=== PATIENT | female | born 1945 | race Caucasian/White ===

== ENCOUNTER 2016-12-31 18:26 | Emergency (ER) | payer OTHER, MEDICARE ==
[~2016-12-31] VITALS: Ht 149.9 cm; Wt 37.6 kg
[~2016-12-31 18:26] MED LIST: BISACODYL5 MG PO; CALCIUM 600 +1 EAC3; CYMBALTA60 MG PO; Caltrate 600/400 PO; Cipro PO; FLEXERIL10 MG PO; HYDROCODON-ACE1 EAC7 PO; IRON325 MG PO; KADIAN30 MG PO; LEVAQUIN500 MG PO; METAMUCIL PACKE1 PKT PO; MS Contin,Oramorph S PO; PERCOCET 5/31 TABLET PO; PROAIR HFA8.5 GM IH; QUETIAPINE FUM100 MG PO; SEROQUEL100 MG PO; SEROQUEL12.5 MG PO; SEROQUEL400 MG PO; SEROquel PO; VICODIN,LORT1 TABLET PO; Vicodin,Norco 5/325 PO; ZOFRAN ODT4 MG PO
[2016-12-31] MEDS ORDERED: KADIAN30 MG PO (19:31)
[2016-12-31 19:32] LABS: HEMATOCRIT 39.2 % (36.0-46.0); MCH 31.3 PG (29.0-34.0); MCHC 34.4 G/DL (30.0-36.0); PLATELET COUNT 528 K/uL (156-360); RBC DIS.WIDTH-SD 46.8 % (39-53); RED BLOOD COUNT 4.32 M/uL (3.80-5.20); WHITE BLOOD COUNT 11.5 K/uL (4.1-10.2)
[2016-12-31 19:33] LABS: MCV 90.7 FL (83-99)
[2016-12-31] MEDS ORDERED: HYDROCODON-ACE1 EAC7 PO (19:33)
[2016-12-31 19:41] LABS: CHLORIDE 102 mEq/L (99-109); SODIUM 135 mEq/L (136-147)
[2016-12-31 19:42] LABS: GLUCOSE 108 mg/dL (70-99)
[2016-12-31 19:44] LABS: ANION GAP 12 MEQ/L (2-14)
[2016-12-31 19:46] LABS: GFR ESTIMATE (CALCULATED) > 59 mL/min/
[2016-12-31 19:47] LABS: UREA NITROGEN (BUN) 10 mg/dL (9-23)
[2016-12-31 22:18] VITALS: BP 161/91
== END 2016-12-31 23:12 | disposition left against medical advice (07) ==
LOC: EME 18:26
PROVIDERS: Nurse Practitioner Family
DX: L03.114 Cellulitis of left upper limb (principal); D72.829 Elevated white blood cell count, unspecified; Z16.20 Resistance to unspecified antibiotic; Z88.1 Allergy status to other antibiotic agents; Z88.0 Allergy status to penicillin; F17.200 Nicotine dependence, unspecified, uncomplicated; Z86.19 Personal history of other infectious and parasitic diseases
CPT/HCPCS: 73130; 80048; 83605; 85027; 87040; 99281; 99285; J0692; J3370; J7030; J7050